=== PATIENT | female | born 1990 | race Caucasian/White ===

== ENCOUNTER 2019-01-08 07:15 | Inpatient (IN) | payer OTHER ==
[~2019-01-08] VITALS: Ht 157.5 cm; Wt 65.0 kg
[2019-01-08 07:48] VITALS: BP 115/77; PULSE 112; Ht 157.5 cm; Wt 65.0 kg
[2019-01-08] MEDS ORDERED: PNV11TAB PO (07:50)
[2019-01-08] MEDS ORDERED: METH250T5 PO (07:51)
[2019-01-08] MEDS ORDERED: LIDOCAINE 1% (MPF) 30 ML INJ INJ PRN (08:30)
[2019-01-08] MEDS ORDERED: BUTORPHANOL 2 MG INJ IV PRN ×2 (08:30)
[2019-01-08] MEDS ORDERED: MISOPROSTOL 200 MCG TAB PR PRN ×2 (08:30→14:30)
[2019-01-08] MEDS ORDERED: METHYLERGONOVINE 0.2 MG INJ IM PRN ×2 (08:30→14:30)
[2019-01-08] MEDS ORDERED: OXYTOCIN 30 UNITS/LR 500 ML IV PRN ×2 (08:30→14:30)
[2019-01-08] MEDS ORDERED: OXYTOCIN 30 UNITS/LR 500 ML IV SCH ×4 (08:30→14:30)
[2019-01-08] MEDS ORDERED: CARBOPROST 250 MCG INJ IM PRN ×2 (08:30→14:30)
[2019-01-08] MEDS ORDERED: AMPICILLIN 2 GM/NS (PMX) 100 ML IV ONE (08:30)
[2019-01-08] MEDS: LACTATED RINGER'S 1,000 ML IV SCH ×2 (08:52→16:08)
--- NOTE | 2019-01-08 10:09 | HP ---
Date/Time of Note Date/Time of Note DATE: 01/08/19 TIME: 10:07 OB - History Hx of Present Free Text/Dictation 38+6 Chronic HTN : 1 Para: 0 Care: Good Care Ultrasounds: Normal mid trimester US Obstetrical Complications: None, Gestational Hypertension Medical Complications: None Past Family/Social History * Past Medical, Surgical, Family and Obstetric Histories reviewed from chart. OB Admission Exam Vital Signs Vital Signs Vital Signs Date Temp Pulse Resp B/P (MAP) Pulse Ox O2 O2 Flow FiO2 Time Delivery Rate 01/08/19 98.5 112 115/77 07:48 (90) Physical Exam Abdomen: WNL Extremities: Normal Cervical Dilatation: 2cm Effacement: 75% Station: -1 Membranes: Intact Heart Rate: 140's Accelerations: Accelerations Present Decelerations: No Decelerations Varibility: Moderate Contractions on Admission: 6-10 Minutes Apart Last 72 hours Lab Results CBC & BMP 01/08/19 08:50 OB Assessment/Plan Reason for admission: observation Other Assessment: PMH Chronic HTN PSH Denies Plan: Expectant Management LILIANE RICE M.D. Jan 08, 2019 10:09
[2019-01-08] MEDS ORDERED: AMPICILLIN 1 GM/NS (PMX) 50 ML IV SCH (12:30)
[2019-01-08] MEDS ORDERED: BENZOCAINE 20% 56 ML SPRAY TOP PRN (14:30)
[2019-01-08] MEDS ORDERED: SENNA/DOCUSATE NA (8.6MG/50MG) TAB PO PRN (14:30)
[2019-01-08] MEDS ORDERED: NACL 0.9% 3 ML SYG IV SCH (14:30)
[2019-01-08] MEDS ORDERED: ZOLPIDEM 5 MG TAB PO PRN (14:30)
[2019-01-08] MEDS ORDERED: OXYCODONE/ASPIRIN (4.88/325) TAB PO PRN (14:30)
[2019-01-08] MEDS ORDERED: WITCH HAZEL/GLYCERIN PAD PR PRN (14:30)
--- NOTE | 2019-01-08 14:30 | LDN ---
Date/Time of Note Date/Time of Note DATE: 01/08/19 TIME: 14:29 Delivery Summary 38+ Placenta Delivered: Spontaneously Meconium: none Episiotomy: No Perineal laceration: 1 Anesthesia type: Epidural Estimated blood loss: 200 Sponge & Needle done & correct: Yes All needle counts correct: Yes Any foreign bodies felt in the: No Delivery Information Apgars 1 Minute: 9 5 Minute: 9 Suctioning Nose & mouth suctioned at shreya: Yes Delee suction performed: Yes Umbilical Cord Umbilical cord with: 3 Vessels Cord presentations: no nuchal cord Cord Blood was obtained: Yes Mother & Baby Disposition Disposition Mom & Baby to Maternity; Good: Yes Mom transferred to: Other Baby to NICU: No LILIANE RICE M.D. Jan 08, 2019 14:30
[2019-01-08 15:30] VITALS: BP 131/84; PULSE 82; RESP 16
[2019-01-08 16:00] VITALS: BP 137/92; PULSE 93; RESP 16
[2019-01-08] MEDS: IBUPROFEN 600 MG TAB PO SCH (18:00)
[2019-01-08 20:00] VITALS: BP 134/85; PULSE 94; RESP 18
[2019-01-08] MEDS: SENNA/DOCUSATE NA (8.6MG/50MG) TAB PO SCH (21:01)
[2019-01-09] VITALS: BP 119/79; PULSE 100; RESP 17
[2019-01-09] MEDS: LACTATED RINGER'S 1,000 ML IV SCH ×3 (00:08→16:08)
[2019-01-09] MEDS: IBUPROFEN 600 MG TAB PO SCH ×5 (06:00→23:52)
[2019-01-09 08:00] VITALS: BP 132/80; PULSE 99; RESP 16
[2019-01-09] MEDS: SENNA/DOCUSATE NA (8.6MG/50MG) TAB PO SCH ×2 (09:59→23:51)
[2019-01-09 12:00] VITALS: BP 120/94; PULSE 78; RESP 18
[2019-01-09 15:35] VITALS: BP 130/92; PULSE 102; RESP 18
--- NOTE | 2019-01-09 18:04 | QN ---
Documentation Comment day #1 Status post Patient stable and afebrile Vital signs stable VS - Last 72 Hours, by Label Date Temp Pulse Resp B/P (MAP) Pulse Ox O2 O2 Flow FiO2 Time Delivery Rate 01/09/19 97.8 102 18 130/92 15:35 (105) 01/09/19 98.1 78 18 120/94 Room Air 12:00 (103) 01/09/19 98.2 99 16 132/80 Room Air 08:00 (97) 01/09/19 98.9 100 17 119/79 Room Air 00:00 (92) 01/08/19 98.9 94 18 134/85 Room Air 20:00 (101) 01/08/19 93 16 137/92 Room Air 16:00 (107) 01/08/19 98.7 82 16 131/84 Room Air 15:30 (100) 01/08/19 98.5 112 115/77 07:48 (90) Hematology - 72 Hrs Test 01/08/19 08:50 01/09/19 07:05 Hematocrit 39.7 % (37.0-47.0) 39.1 % (37.0-47.0) Hemoglobin 13.3 g/dl (12.0-16.0) 12.8 g/dl (12.0-16.0) Mean Corpuscular 29.6 pg (29.0-33.0) 29.3 pg (29.0-33.0) Hemoglobin Mean Corpuscular 33.5 g/dl (32.0-37.0) 32.7 g/dl (32.0-37.0) Hemoglobin Concent Mean Corpuscular Volume 88.4 fl (82.0-101.0) 89.5 fl (82.0-101.0) Mean Platelet Volume 11.6 fl (7.4-10.4) H 11.3 fl (7.4-10.4) H Platelet Count 172 10^3/UL (140-415) 163 10^3/UL (140-415) Red Blood Count 4.49 10^6/ul (4.20-5.40) 4.37 10^6/ul (4.20-5.40) Red Cell Distribution 13.2 % (11.5-14.5) 13.5 % (11.5-14.5) Width White Blood Count 14.4 10^3/ul (4.8-10.8) 18.1 10^3/ul (4.8-10.8) H #H Chemistry Test 01/08/19 08:50 Sodium Level 136 mmol/L (135-144) Potassium Level 4.0 mmol/L (3.5-5.1) Chloride Level 106 mmol/L (97-110) Carbon Dioxide Level 22 mmol/L (21-31) Anion Gap 8 (5-13) Blood Urea Nitrogen 13 mg/dl (7-20) Creatinine 0.78 mg/dl (0.44-1.00) Est Glomerular Filtrat Rate mL/min > 60 mL/min (>60) Glucose Level 85 mg/dl (70-220) Uric Acid 6.9 mg/dl (3.1-7.9) Calcium Level 9.6 mg/dl (8.4-10.2) Total Bilirubin 0.6 mg/dl (0.2-1.3) Direct Bilirubin 0.00 mg/dl (0.00-0.20) Indirect Bilirubin 0.6 mg/dl (0-1.1) Aspartate Amino Transf (AST/SGOT) 28 IU/L (15-46) Alanine Aminotransferase (ALT/SGPT) 15 IU/L (13-69) Alkaline Phosphatase 170 IU/L (42-121) H Total Protein 7.1 g/dl (6.1-8.1) Albumin 3.7 g/dl (3.3-4.9) Globulin 3.40 g/dl (1.3-3.2) H Albumin/Globulin Ratio 1.08 Abdomen soft, fundus firm Perineum intact Extremities nontender Assessment and plan Patient stable and doing well Repeat CBC in a.m. Continue with routine care RICHMOND MERCADO MD Jan 09, 2019 18:04
[2019-01-09 20:00] VITALS: BP 133/83; PULSE 101; RESP 18
[2019-01-10] MEDS: LACTATED RINGER'S 1,000 ML IV SCH ×2 (00:08→08:08)
[2019-01-10 03:47] VITALS: BP 118/80; PULSE 80; RESP 17
[2019-01-10] MEDS: IBUPROFEN 600 MG TAB PO SCH ×2 (05:34→12:00)
[2019-01-10 08:00] VITALS: BP 124/84; PULSE 85; RESP 17
[2019-01-10] MEDS ORDERED: DIPHTH/TET/ACEL PERTUSS (ADULT) 0.5 ML VIAL IM* ONE (09:00)
[2019-01-10] MEDS ORDERED: MEASLES,MUMPS,RUBELLA VACCINE INJ SC* ONE (09:00)
[2019-01-10] MEDS: SENNA/DOCUSATE NA (8.6MG/50MG) TAB PO SCH (09:21)
--- NOTE | 2019-01-11 02:24 | DS ---
Date/Time of Note Date/Time of Note DATE: 01/11/19 TIME: 02:22 Obstetrical Discharge Record Final Diagnosis Final Diagnosis: Term delivered Other Final Diagnosis Late entry note. Patient seen on 01/10/2019 28 years old 1 para 1-0-0-1 s/p normal vaginal delivery at 38 weeks and 6 days. Post day 2. Her course was unremarkable. She was ambulating and tolerating regular diet. She is voiding without difficulty. Pain is controlled on current medication. She is afebrile, vital sign is stable. She discharged home in stable condition with follow-up in 2 and 6 weeks. Vaginal Delivery Obstetrical Delivery: Spontaneous Condition on Discharge Physical Assessment Last Vitals: Vital Signs Date Temp Pulse Resp B/P (MAP) Pulse Ox O2 O2 Flow FiO2 Time Delivery Rate 01/10/19 98.2 85 17 124/84 Room Air 08:00 (97) Voiding: Yes Bowel Movement: Yes Breast: Soft, non-tender Fundus: Firm Calf Tenderness: No Patient Condition: Stable GARRET RICE Jan 11, 2019 02:24
--- NOTE | 2019-01-11 13:50 | DELSUM ---
Delivery Summary A-C Datetime Report Generated by CPN: 01/11/2019 13:49 DELIVERY PERSONNEL Systems Administration Analyst: Duvo, Marivel MATERNAL INFORMATION Delivery Anesthesia: Local Medications in Delivery: pitocin 30 units Delivery QBL (ml): 211 Placenta Cultured: No Maternal Complications: None LABOR SUMMARY EDC: 01/16/2019 00:00 No. Babies in Womb: 1 Attempted: No Labor Anesthesia: None LABOR INFORMATION Reason for Induction: Not Applicable Onset of Labor: 01/08/2019 10:00 Complete Dilatation: 01/08/2019 13:47 Oxytocin: Augmentation Group B Beta Strep: Positive Antibiotics # of Doses: 1 Antibiotics Time of Last Dose: 01/08/2019 11:15 Steroids Given: None Reason Steroids Not Administered: Not Applicable MEMBRANES Membranes Rupture Method: Spontaneous Rupture of Membranes: 01/08/2019 12:45 Length of Rupture (hr): 1.20 Amniotic Fluid Color: Clear Amniotic Fluid Amount: Moderate Amniotic Fluid Odor: None STAGES OF LABOR Stage 1 hr: 3 Stage 1 min: 47 Stage 2 hr: 0 Stage 2 min: 10 Stage 3 hr: 0 Stage 3 min: 4 Total Time in Labor hr: 4 Total Time in Labor min: 1 VAGINAL DELIVERY Episiotomy: None Laceration Extension: First Degree Laceration Type: Perineal Laceration Repair: Yes Initial Vag Sponge Count: 10 Final Vag Sponge Count: 10 Initial Vag Sharps Count: 1 Final Vag Sharps Count: 2 Sponge Count Correct: Yes; Vaginal Sweep Performed Sharps Count Correct: Yes BABY A INFORMATION Infant Delivery Date/Time: 01/08/2019 13:57 Method of Delivery: Vaginal Born in Route : No : N/A Forceps: N/A Vacuum Extraction: Successful Shoulder Dystocia : No ASSISTED DELIVERY BABY A Indication for Assisted Delivery: VARIABLE DECELERATIONS Catheter Prior to Procedure: No Station Vacuum/Forcep Apply: +1 Position Vacuum/Forcep Apply: Left Occipital Anterior Vacuum Number of Pulls: 1 Vacuum Number of PopOffs: 0 Reduce Pressure btwn Ctx: Yes Vacuum Machine Clipper: KIWI Total Time Vacuum Applied: 56 SECONDS Vacuum/Forceps Comment: MD PRESSURE CONTROLLED. SHOULDER DYSTOCIA BABY A Infant Delivery Date/Time: 01/08/2019 13:57 PRESENTATION/POSITION BABY A Presentation: Cephalic Cephalic Presentation: Vertex Vertex Position: Left Occipital Anterior Breech Presentation: N/A PLACENTA INFORMATION BABY A Placenta Delivery Time : 01/08/2019 14:01 Placenta Method of Delivery: Spontaneous Placenta Status: Delivered SCORES BABY A Heart Rate 1 min: >100 bpm Resp Effort 1 min: Good Cry Reflex Irritability 1 min: Cough/Sneeze/Pulls Away Muscle Tone 1 min: Active Motion Color 1 min: Blue/Pale Resuscitation Effort 1 min: Tactile Stimulation SCORE 1 MIN: 8 Heart Rate 5 min: >100 bpm Resp Effort 5 min: Good Cry Reflex Irritability 5 min: Cough/Sneeze/Pulls Away Muscle Tone 5 min: Active Motion Color 5 min: Body [place], Extremit Blue Resuscitation Effort 5 min: Tactile Stimulation SCORE 5 MIN: 9 INFORMATION BABY A Gestational Age at Delivery: 38.6 Gestational Status: Early Term- 37- 38.6 Weeks Infant Outcome : Liveborn Condition : Stable Infant Sex: Female IDENTIFICATION/MEDS BABY A ID Band Number: [id number] ID Band Location: Right Leg; Left Arm Sensor Applied: Yes Sensor Number: [id number] Sensor Location : Cord Clamp Vitamin K Given : Not Given Erythromycin Given: Not Given WEIGHT/LENGTH BABY A Infant Birthweight (gm): 3175 Weight (lb): 7 Infant Weight (oz): 0 Length (in): 18.00 Length (cm): 45.72 CORD INFORMATION BABY A No. Cord Vessels: 3 Nuchal Cord : N/A Cord Blood Taken: Yes Suction: Mouth; Nose ASSESSMENT BABY A Infant Complications: Multiple Variable Decels; Meconium Physical Findings at Delivery: Molding of the Head; Within Normal Limits Physical Findings- Other: SCALP INTACT Infant Respirations: Appears Normal Centrifugal Station Operator/ALS Called : Yes Infant Care By: Rickie LAMB RN Transferred To: Remains with Mother
== END 2019-01-10 13:00 | disposition home or self-care (01) | DRG 807 ==
LOC: L-D 07:15 → OBT 07:15 → L-D 08:00 → PP1 15:58
PROVIDERS: ADMIT Obstetrics & Gynecology; ATTEND Obstetrics & Gynecology
PROC: 10E0XZZ Delivery of Products of Conception, External Approach (ICD-10-PCS; principal; 2019-01-08)
PROC: 0HQ9XZZ Repair Perineum Skin, External Approach (ICD-10-PCS; 2019-01-08)
DX: O10.02 Pre-existing essential hypertension complicating childbirth (principal); Z37.0 Single live birth; O70.9 Perineal laceration during delivery, unspecified; Z3A.38 38 weeks gestation of pregnancy; Z23 Encounter for immunization
CPT/HCPCS: 76815; 80053; 81001; 84560; 85025; 85384; 85610; 85730; 86592; 86850; 86900; 86901; 87340; G0463; J0290; J2590; J7120